=== PATIENT | male | born 1965 | race Two or more races ===

== ENCOUNTER 2021-02-17 15:28 | Emergency (ER) | payer MEDICAID, SELFPAY ==
[2021-02-17 15:35] VITALS: BP 136/70; PULSE 110; O2SAT 99
[2021-02-17 15:45] VITALS: BP 132/68; PULSE 85; RESP 16; TEMP 36.9; O2SAT 100; BMI 22.4
--- NOTE | 2021-02-17 16:10 | ED.ALCOHOL ---
HPI - Alcohol General Chief Complaint: ETOH/Substance Use Stated Complaint: etoh Time Seen by Provider: 02/17/21 16:08 Source: patient and EMS Mode of arrival: EMS Limitations: no limitations History of Present Illness HPI narrative: Patient tells me he worked till 1am. He had several beers and used heroin in his car after work. Fell asleep. Found by bystander and EMS called who transported him here. No SI/HI. Denies desire for detox today. No physical complaints. Related Data Allergies Allergy/AdvReac Type Severity Reaction Status Date / Time No Known Allergies Allergy Unverified 07/15/20 14:54 Review of Systems Review of Systems: Yes all other systems are reviewed and are negative Constitutional: Constitutional: Reports no additional constitutional complaints, Denies body ache(s), Denies chills, Denies fever(s), Denies headache(s) and Denies weakness Eyes: Eyes: Reports no additional eye complaints and Denies change in vision ENT: Reports system reviewed and no additional complaints, except as documented, Denies dizziness, Denies headache(s), Denies nasal congestion, Denies nasal discharge and Denies neck pain Cardiovascular: Cardiovascular: Reports no additional cardiovascular complaints, Denies chest pain, Denies leg edema and Denies dyspnea Respiratory: Respiratory: Reports no additional respiratory complaints, Denies cough and Denies dyspnea Gastrointestinal: Gastrointestinal: Reports no additional gastrointestinal complaints, Denies abdominal pain, Denies diarrhea, Denies nausea and Denies vomiting Genitourinary: Genitourinary: Denies urinary incontinence Musculoskeletal: Musculoskeletal: Reports no additional musculoskeletal complaints, Denies back pain, Denies arthralgias, Denies joint swelling, Denies neck pain, Denies numbness and Denies tingling Integumentary/Breasts: Skin/Breast: Reports system reviewed and no additional complaints, except as docu and Denies rash Neurologic: Reports system reviewed and no additional complaints, except as documented, Denies Abnormal speech present, Denies dizziness, Denies headache(s), Denies numbness, Denies tingling and Denies weakness PMFSH Past Medical History Attestation statement: The following information was validated with the patient. Source: old records reviewed and nursing notes reviewed Social History Social History Advance Directives: No Advance Directives Information Provided: Yes Physical Exam Vital Signs: Vital Signs: Last Vital Signs Temp 98.4 F 02/17/21 15:45 Pulse 85 02/17/21 15:45 Resp 16 02/17/21 15:45 BP 132/68 02/17/21 15:45 Pulse Ox 100 02/17/21 15:45 Body Mass Index 22.4 Const: General: cooperative, healthy appearing, comfortable and no acute distress Orientation/consciousness: patient oriented x3 Limitations: no limitations HENMT: Head: Yes normal to inspection Ears: hearing grossly normal bilaterally General nose exam: Normal external nose present Face and sinus: Yes normal facial exam Mouth: Normal oral and palatal mucosa present Throat: Yes posterior oropharynx normal Eyes: General: appearance normal, both eyes and all related structures Pupils: Equal, round and reactive pupils present Neck: Neck: Yes normal visual inspection Chest: Chest palpation & inspection: normal inspection of the chest Resp: Effort & Inspection: normal respiratory effort Auscultation: clear to auscultation bilaterally Cardio: Rate: regular rate Rhythm: regular rhythm Peripheral pulses: Peripheral pulses 2+ throughout GI: Inspection: Yes normal to inspection Palpation (GI): Soft to palpation and nontender Auscultation: normal bowel sounds Back/Spine/Pelvis: Thoracic/Lumbar Spine: thoracic and lumbar spine normal to inspection Skin: General skin exam: no rashes or lesions noted Neuro: General: patient oriented x3, no focal motor deficits and normal sensation to monofilament Cranial nerves: Yes Equal, round and reactive pupils present Cognition (Neuro): normal cognition Speech: No Abnormal speech present Gait exam (Neuro): Normal gait present Motor exam (neuro): 5/5 motor strength present throughout Extrem: General: Yes normal to inspection Course Course Course Narrative: 55 yo male here after being found sleeping in his car. Patient admits to using heroin and drinking beer at 2am after his shift then sleeping in his car. He has no physical complaints. No SI/HI. Does not want detox. Patient is A&Ox4. Walking with steady gait, talking on cellphone and tolerating PO. Clinically well. Patient tells me his brother will pick him up. Reviewed worrisome signs/symptoms with patient and when to return to ED. Comfortable with discharge home Discharge Plan Discharge Clinical Impression: Alcoholic intoxication, Substance use Patient Disposition: Home, Self-Care Instructions: Abuse of Alcohol (ED), Polysubstance Abuse (ED) Referrals: ED Physician,Generic [Physician] - 2 days Interventions: ED Discharge Assessment Last Done: 02/17/21 16:23 Discharge Date/Time: 02/17/21 16:24
== END 2021-02-17 16:24 | disposition home or self-care (01) ==
PROVIDERS: Emergency Provider Emergency Medicine
DX: F10.120 Alcohol abuse with intoxication, uncomplicated (principal); F11.10 Opioid abuse, uncomplicated
CPT/HCPCS: 99283

== ENCOUNTER 2024-09-04 10:40 | Emergency (ER) | payer MEDICAID, SELFPAY ==
--- NOTE | ~2024-09-04 | CT_ITS ---
EXAMINATION: CT ABDOMEN AND PELVIS WITH CONTRAST CLINICAL INFORMATION: Right upper quadrant pain. COMPARISON: None available. TECHNIQUE: Multidetector volumetric images were obtained from the superior aspect of the liver through the pubic symphysis following administration 85 mL of Omnipaque 350 intravenous contrast without reported immediate complications. Sagittal and coronal reformatted images were obtained on the technologist's workstation. Oral contrast: No This CT examination was performed using dose optimization techniques as appropriate, variously including the following: *Automated exposure control *Adjustment of mA and/or kV according to patient size (this includes techniques or standardized protocols for targeted exams where dose is matched to indication/reason for exam; i.e. extremities or head) *Use of iterative reconstruction technique DLP: 304 mGy-cm FINDINGS: LUNG BASES: No acute airspace disease or gross pulmonary nodules in the included lung bases. LIVER, GALLBLADDER, AND BILIARY TREE: Liver measures 18 cm with a nodular surface. 1.5 cm hypodensity in the right hepatic lobe. Intrahepatic biliary ductal dilatation, mild to moderate. Fluid-filled distended gallbladder. Trace of pericholecystic fluid. The dilated cystic duct measuring 1.7 cm. Dilated common bile duct measuring 2.5 cm with an abrupt cut off at the region of the head of the pancreas. PANCREAS: There is a 3.2 cm heterogeneous nodular enhancing lesion/mass in the head of the pancreas. There is a main pancreatic ductal dilatation measuring 1.2 cm. There is a 3.2 cm thin-walled cystic lesion in the caliber pancreas near the splenic hilum. There is a 2.5 cm cystic lesion in the uncinate process.. SPLEEN: Measures 11 cm without focal mass. ADRENAL GLANDS: No nodular lesions. KIDNEYS AND URETERS: There is a 1.7 cm exophytic septated enhancing lesion in the posterior lower pole/midportion junction of the right kidney. No hydronephrosis in either kidney. BLADDER: Fluid-filled. GASTROINTESTINAL TRACT: Edematous wall throughout the large intestine resulting in narrow lumen of the large intestine. Abundant stool. No intestinal obstruction pattern. Ascites, small to moderate volume. No pneumoperitoneum. No pneumatosis intestinalis. Appendix is normal. ABDOMINAL WALL: No gross hernia. LYMPH NODES: Lymphadenopathy, retroperitoneal, the largest measures 2 cm. VASCULAR: Mixed plaques in the abdominal aorta wall and iliac arteries without aneurysm or dissection. PELVIC VISCERA: Nonenlarged prostate gland with dystrophic ossifications. OSSEOUS STRUCTURES: Sclerotic marginated lytic lesion in the right femoral head. Degenerative changes in the sacroiliac joints. S-shaped curvature of the lumbar spine. Multilevel spondylosis. No acute fracture or listhesis in the axial skeleton. CT/CT abdomen pelvis w IV con IMPRESSION: Concerning for a 3.2 cm mass, pancreatic head resulting in biliary ductal dilatation and hydrops gallbladder. Hepatomegaly and likely hepatocellular disease. Ascites, moderate volume. Acute diffuse colitis. There are 2 pancreatic cystic lesions, uncinate process and tail. Bosniak type IV lesion, posterior lower pole midportion junction right kidney. Avascular necrosis, right femoral head. Fleischner guidelines were followed. Electronically signed by: Jamil Reed MD 09/04/2024 03:10 PM [facility]
[2024-09-04 10:52] VITALS: BP 107/51; PULSE 94; RESP 20; TEMP 36.4; O2SAT 98; BMI 20.4
[2024-09-04 11:16] LABS: Hematocrit 41.3 % (42.0-52.0); Hemoglobin 14.2 g/dl (14.0-18.0); Mean Corpuscular HGB Conc 34.4 g/dl (31.0-36.0); Mean Corpuscular Hemoglobin 29.1 pg (27.0-33.0); Mean Corpuscular Volume 84.6 fL (80.0-98.0); Mean Platelet Volume 12.1 fL (9.4-12.4); Platelet Count 262 X10*3/uL (160-400); Red Blood Count 4.88 X10*6/uL (4.60-5.80); Red Cell Distribution Width 19.2 % (11.0-16.0); WBC ABN SCTR FOR CBC 1; White Blood Count 10.3 X10*3/uL (4.8-10.8)
[2024-09-04 11:33] LABS: Band Neutrophils Percent 8 % (3-5); Eosinophils Absolute Manual 0.1 X10*3/uL (0.0-0.4); Eosinophils Percent Manual 1 % (0-4); Lymphocytes Absolute Manual 0.1 X10*3/uL (1.2-4.9); Lymphocytes Percent Manual 1 % (20-40); Metamyelocytes Absolute 0.1 X10*3/uL; Metamyelocytes Percent 1 %; Monocytes Absolute Manual 0.7 X10*3/uL (0.1-1.2); Monocytes Percent Manual 7 % (2-11); Neutrophils Absolute Manual 9.3 X10*3/uL (2.0-8.3); Neutrophils Percent Manual 82 % (45-73)
[2024-09-04 11:35] LABS: Platelet Estimate NORMAL (NORMAL); Platelet Morphology Comment NORMAL; RBC Morphology NOTED; Target Cells 1+ (5-14) /OIF
[2024-09-04 12:07] LABS: Lipase 250 U/L (8-78)
[2024-09-04 12:10] LABS: Alanine Aminotransferase 40 U/L (0-40); Albumin Level 2.9 g/dL (3.5-5.0); Alkaline Phosphatase 268 U/L (39-117); Anion Gap 16 (12-20); Aspartate Amino Transferase 110 U/L (5-37); Bilirubin Total 30.7 mg/dL (0.0-1.0); Blood Urea Nitrogen 21 mg/dL (9-16); Calcium 9.4 mg/dL (8.4-10.2); Carbon Dioxide 26 mmol/L (22-29); Chloride 97 mmol/L (96-108); Creatinine Clr Calc Pharmacy 47.3; Estimated Glomerular Filt Rate 60; Glucose Random 224 mg/dL (60-115); Potassium 4.8 mmol/L (3.3-5.1); Sodium 134 mmol/L (135-145); Total Protein 7.3 g/dL (6.5-8.0)
--- NOTE | 2024-09-04 13:30 | ED.ABDPAIN ---
HPI - Abdominal Pain General Chief Complaint: Abdominal Pain Stated Complaint: Abd pain Time Seen by Provider: 09/04/24 13:23 Source: patient and family () Mode of arrival: ambulatory Limitations: no limitations History of Present Illness ED Provider: MAAME ROWLAND PA-C HPI narrative: 59-year-old male with pmhx significant for alcohol abuse, polysubstance abuse (no longer on methadone), active IVDU (heroin and cocaine - last injected 3 hrs [employer]), hepatitis C, presents to the ED today for evaluation of diffuse abdominal discomfort/ bloating x2-3 months, worsening over the last few days. Reports associated decreased appetite, intermittent nausea/ vomiting, weight loss, dark urine, and yellowing to skin and eyes. Admits to 4/10 abdominal pain at present. Admits to constipation x2-3 days although was able to pass a normal BM this morning. Reports discontinuing all ETOH consumption 3 months ago at onset of symptoms. Admits to diagnosis of hep c and reports being treated for this 7 years ago. He does not have a PCP or any other out patient provider. Denies fever, chills, chest pain, SOB, LE pain/ swelling, diarrhea, dysuria, hematuria, flank pain. Related Data Allergies Allergy/AdvReac Type Severity Reaction Status Date / Time No Known Allergies Allergy Verified 09/04/24 10:55 Review of Systems Review of Systems Constitutional: No fever, chills, fatigue, night sweats, weight changes ENT/Mouth: No ear pain, hearing loss, nasal congestion, sinus pain, rhinorrhea, sore throat Eyes: No eye pain, swelling, redness, vision changes, discharge Cardio: No chest pain, palpitations, SKAGGS, orthopnea, peripheral edema Pulm: No SOB, cough, sputum, wheezing, dyspnea, hemoptysis GI: No hematemesis, diarrhea, constipation, hematochezia, melena, +abd bloating, +nausea, +vomiting : No irregular bleeding, dysuria, frequency, urgency, hesitancy, hematuria, flank pain, urinary flow changes, urinary incontinence or retention MSK: No back pain, neck pain, joint pain, myalgias Skin: No lesions, rashes, +yellow skin Neuro: No weakness, numbness, paresthesias, LOC, dizziness, headache Psych: No anxiety/panic, depression, SI/HI, AH/VH All other systems reviewed and are negative. [facility] Past Medical History Attestation statement: The following information was validated with the patient. Source: old records reviewed and nursing notes reviewed Social History Social History Smoked in Last 30 Days: No Use of substances other than those prescribed or required for medical reasons: Yes Substance Use Type: IV Drugs Substance Use Frequency: Chronic Longstanding Advance Directives: No Advance Directives Information Provided: Yes Physical Exam ED Vital Signs: Vital Signs - 24 hr 09/04/24 10:52 09/04/24 14:52 Temperature 97.6 F 98.2 F Pulse Rate 94 68 Respiratory Rate 20 18 Blood Pressure 107/51 L 135/76 Pulse Oximetry 98 99 Oxygen Delivery Method Room Air Room Air BMI result Body Mass Index 20.4 vital signs stable, afebrile General: ill appearing, thin, jaundiced Skin: Warm, dry, intact. No rashes or lesions. Head: Normocephalic, atraumatic. EENT: Hearing is intact b/l. Conjunctiva clear. scleral icterus. PERRLA. EOM intact. Moist mucous membranes.? Neck: Supple without LAD Cardiac: Chest wall symmetric. RRR Lungs: Normal respiratory effort without accessory muscle use. CTA bilaterally. No rales, rhonchi, or wheezes.? Abdomen: abdomen is distended, soft, nontender to light and deep palpation. he has normoactive bs x4. track fitzpatrick to upper extremities. Back: No midline spinous or paraspinal tenderness. No step off deformity. Ext: track fitzpatrick noted to UEs. Full ROM throughout. Neuro: AOx3. Normal speech. CN 2-12 grossly intact. Strength 5/5 intact throughout. No saddle anesthesia. Sensation intact to light touch. NV intact distally. Ambulating with steady gait. Psych: Appropriate mood and affect. Responds appropriately to questions. Course Course Course Narrative: 1351 -- CBC without leukocytosis. 8% bands. no anemia, h&h stable. chemistry with slight hyponatremia to 134. No ROSALINA. random glucose 224. Total bili elevated at 30.7, direct bili 22.7, AST 110, ALT 40, alk phos 268, albumin 2.9, lipase 250. Ethanol undetectable. Hepatitis panel pending. > declining any pain meds at present. IVF given. > CT abd pending. UA/UDS pending. 1548 -- CT abdomen showing hepatomegaly at 18 cm with nodular surface. There is a 1.5 cm hypodensity in the right hepatic lobe. Intrahepatic biliary ductal dilation mild to moderate. Fluid-filled distended gallbladder. Trace of pericholecystic fluid. Cystic duct dilated to 1.7 cm. Common bile duct dilated to 2.5 cm. There is a very 0.2 cm heterogeneous nodular enhancing lesion/mass not the head of the pancreas with main pancreatic ductal dilation to 1.2 cm. There was a 3.2 cm thin-walled cystic lesion in the caliber pancreas or the splenic hilum and do a 2.5 cm cystic lesion in the uncinate process. There is also edema throughout the large intestine resulting in narrow lumen of the large intestine and abundant stool without obstruction. Moderate amount of ascites. Normal appendix. > I spoke with our oncall Gi doctor, Dr. Hearn who states that the patient will require EUS and ERCP. unfortunaely, we do not have the ability to perform EUS at our facility. > Given patient does not have a PCP or any other outpatient specialist to follow up with, will reach out to [facility] for transfer for further care/ work up. I did discuss all work up results with patient and his . they express understanding and are agreeable to transfer to acute care center for further care. 1615 -- I spoke with GI fellow, Dr. Kwok, at [facility]. He accepts patient admission for further work up/ management. I also spoke with hospitalist ANY Orozco. Hospitalist Dr. Hubbard to be accepting physician on patient arrival. awaiting call from [facility] for bed placement. > patient and informed and are agreeable. Medical Decision Making Medical Decision Making MDM Narrative: 59-year-old male with pmhx significant for alcohol abuse, polysubstance abuse (no longer on methadone), IVDU (heroin and cocaine - last injected 3 hrs [employer]), hepatitis C, presents to the ED today for evaluation of diffuse abdominal discomfort/ bloating x2-3 months, worsening over the last few days. Vital signs are stable. He is afebrile. He is ill appearing. jaundiced with noted scleral icterus. AOX3. his abdomen is distended, soft, nontender to light and deep palpation. he has normoactive bs x4. track fitzpatrick to upper extremities. Differential diagnosis includes anemia, electrolyte abnormality, dehydration, acute cholecystitis, choledocolithiasis, cholangitis, cirrhosis, hepatitis, pancreatitis, pancreatic vs liver carcinoma. I do not have suspicion of spontaneous bacterial peritonitis. Plan for labs, UA, UDS, CT scan, re-evaluation. Differential Diagnosis Differential Diagnoses: The differential diagnosis associated with the presentation includes as above Admission/Observation Consideration of admission/observation: Escalation of care including admission/observation considered Considered [place] [facility] [place] will transfer to [facility] for EUS/ ERCP Consult Healthcare Provider Management of the patient was discussed with: Forestry Engineer [facility] [place] - Dr. Hearn [facility] GI - Dr. Kwok [facility] hostpitalist ANY Orozco Lab Data MDM Lab Attestation statement: I reviewed the patient's lab results. as above 09/04/24 11:10 09/04/24 11:10 Labs: Lab Results 09/04/24 Range/Units 11:10 WBC 10.3 (4.8-10.8) X10*3/uL RBC 4.88 (4.60-5.80) X10*6/uL Hgb 14.2 (14.0-18.0) g/dl Hct 41.3 L (42.0-52.0) % MCV 84.6 (80.0-98.0) fL MCH 29.1 (27.0-33.0) pg MCHC 34.4 (31.0-36.0) g/dl RDW 19.2 H (11.0-16.0) % Plt Count 262 (160-400) X10*3/uL MPV 12.1 (9.4-12.4) fL Immature Gran % (Auto) Cancelled Neut % (Auto) Cancelled Lymph % (Auto) Cancelled Gillespie % (Auto) Cancelled Eos % (Auto) Cancelled Baso % (Auto) Cancelled Lymph # (Auto) Cancelled Gillespie # (Auto) Cancelled Eos # (Auto) Cancelled Baso # (Auto) Cancelled Abs Immat Gran (auto) Cancelled Absolute Neuts (auto) Cancelled Absolute Nucleated RBC 0.000 (0.0-0.012) X10*3/uL Nucleated RBC % (auto) 0.0 (0.0-0.2) /100WBC Neutrophils % (Manual) 82 H (45-73) % Band Neutrophils % 8 H (3-5) % Lymphocytes % (Manual) 1 L (20-40) % Monocytes % (Manual) 7 (2-11) % Eosinophils % (Manual) 1 (0-4) % Metamyelocytes % 1 % Abs Neuts (Manual) 9.3 H (2.0-8.3) X10*3/uL Lymphocytes # (Manual) 0.1 L (1.2-4.9) X10*3/uL Monocytes # (Manual) 0.7 (0.1-1.2) X10*3/uL Eosinophils # (Manual) 0.1 (0.0-0.4) X10*3/uL Metamyelocytes # 0.1 X10*3/uL Platelet Estimate NORMAL (NORMAL) Plt Morphology Comment NORMAL RBC Morphology NOTED Target Cells 1+ (5-14) /OIF Sodium 134 L (135-145) mmol/L Potassium 4.8 (3.3-5.1) mmol/L Chloride 97 (96-108) mmol/L Carbon Dioxide 26 (22-29) mmol/L Anion Gap 16 (12-20) BUN 21 H (9-16) mg/dL Creatinine 1.24 (0.5-1.4) mg/dL Estim Creat Clear Calc 47.3 Estimated GFR 60 Random Glucose 224 H (60-115) mg/dL Calcium 9.4 (8.4-10.2) mg/dL Magnesium 2.1 (1.6-2.6) mg/dL Total Bilirubin 30.7 H (0.0-1.0) mg/dL Direct Bilirubin 22.7 H (0.0-0.5) mg/dL AST 110 H (5-37) U/L ALT 40 (0-40) U/L Alkaline Phosphatase 268 H (39-117) U/L Total Protein 7.3 (6.5-8.0) g/dL Albumin 2.9 L (3.5-5.0) g/dL Lipase 250 H (8-78) U/L Ethyl Alcohol < 10 mg/dL Independent Interpretation I performed an independent interpretation of an: CT Scan Interpretation: CT abd/ pelvis showing mass to pancreatic head Radiology Impression Discussion of test interpretation with radiology: I have reviewed the radiologist's reading. Radiologist Impression: EXAMINATION: CT ABDOMEN AND PELVIS WITH CONTRAST CLINICAL INFORMATION: Right upper quadrant pain. COMPARISON: None available. TECHNIQUE: Multidetector volumetric images were obtained from the superior aspect of the liver through the pubic symphysis following administration 85 mL of Omnipaque 350 intravenous contrast without reported immediate complications. Sagittal and coronal reformatted images were obtained on the technologist's workstation. Oral contrast: No This CT examination was performed using dose optimization techniques as appropriate, variously including the following: *Automated exposure control *Adjustment of mA and/or kV according to patient size (this includes techniques or standardized protocols for targeted exams where dose is matched to indication/reason for exam; i.e. extremities or head) *Use of iterative reconstruction technique DLP: 304 mGy-cm FINDINGS: LUNG BASES: No acute airspace disease or gross pulmonary nodules in the included lung bases. LIVER, GALLBLADDER, AND BILIARY TREE: Liver measures 18 cm with a nodular surface. 1.5 cm hypodensity in the right hepatic lobe. Intrahepatic biliary ductal dilatation, mild to moderate. Fluid-filled distended gallbladder. Trace of pericholecystic fluid. The dilated cystic duct measuring 1.7 cm. Dilated common bile duct measuring 2.5 cm with an abrupt cut off at the region of the head of the pancreas. PANCREAS: There is a 3.2 cm heterogeneous nodular enhancing lesion/mass in the head of the pancreas. There is a main pancreatic ductal dilatation measuring 1.2 cm. There is a 3.2 cm thin-walled cystic lesion in the caliber pancreas near the splenic hilum. There is a 2.5 cm cystic lesion in the uncinate process.. SPLEEN: Measures 11 cm without focal mass. ADRENAL GLANDS: No nodular lesions. KIDNEYS AND URETERS: There is a 1.7 cm exophytic septated enhancing lesion in the posterior lower pole/midportion junction of the right kidney. No hydronephrosis in either kidney. BLADDER: Fluid-filled. GASTROINTESTINAL TRACT: Edematous wall throughout the large intestine resulting in narrow lumen of the large intestine. Abundant stool. No intestinal obstruction pattern. Ascites, small to moderate volume. No pneumoperitoneum. No pneumatosis intestinalis. Appendix is normal. ABDOMINAL WALL: No gross hernia. LYMPH NODES: Lymphadenopathy, retroperitoneal, the largest measures 2 cm. VASCULAR: Mixed plaques in the abdominal aorta wall and iliac arteries without aneurysm or dissection. PELVIC VISCERA: Nonenlarged prostate gland with dystrophic ossifications. OSSEOUS STRUCTURES: Sclerotic marginated lytic lesion in the right femoral head. Degenerative changes in the sacroiliac joints. S-shaped curvature of the lumbar spine. Multilevel spondylosis. No acute fracture or listhesis in the axial skeleton. CT/CT abdomen pelvis w IV con IMPRESSION: Concerning for a 3.2 cm mass, pancreatic head resulting in biliary ductal dilatation and hydrops gallbladder. Hepatomegaly and likely hepatocellular disease. Ascites, moderate volume. Acute diffuse colitis. There are 2 pancreatic cystic lesions, uncinate process and tail. Bosniak type IV lesion, posterior lower pole midportion junction right kidney. Avascular necrosis, right femoral head. Fleischner guidelines were followed. Electronically signed by: Jamil Reed MD 09/04/2024 03:10 PM [facility] [place] Independent Historian Clinical information obtained from an independent historian. History obtained from or confirmed by: Spouse () External Record Review External record reviewed: Inpatient record Prescription Management I considered prescription management with: Pain Medication Chronic Conditions Patient?s care impacted by: Other (IVDU, hep c) Social Determinants Patient?s care significantly limited by Social Determinants of Health including: Other Social Determinant of Health Medications Administered Discontinued Medications Generic Name Dose Route Start Last Admin Trade Name Freq PRN Reason Stop Dose Admin Sodium Chloride 1,000 mls @ 999 mls/hr 09/04/24 14:15 09/04/24 14:46 Ns IV 09/04/24 15:15 999 mls/hr .[id number] UYEN Administration Iohexol 85 ml 09/04/24 14:27 09/04/24 14:27 Iohexol 350 Mg/Ml 100 Ml Infus..Btl IV 09/04/24 14:28 85 ml ONCE ONE Administration Critical Care Time Critical Care Time Critical Care Time: Yes Total Critical Care Time: 45 Attestation: Critical care time in the amount of 45 minutes has been provided to the patient in terms of direct patient care, frequent reevaluation, consultation with GI, [facility], review and interpretation of medical data and results, and management of potentially life-threatening conditions. This is all outside of any medical procedures. Discharge Plan Discharge Clinical Impression: Mass of head of pancreas, Cirrhosis, Colitis, Pancreas cyst, Jaundice Patient Disposition: [facility] Print Language: Uruguayan
[2024-09-04 14:04] LABS: Ethanol < 10 mg/dL; Magnesium 2.1 mg/dL (1.6-2.6)
[2024-09-04 14:27] LABS: Bilirubin Direct 22.7 mg/dL (0.0-0.5)
[2024-09-04] MEDS: iohexoL 350 MG/ML 100 ML INFUS..BTL 85 ML IV (14:27)
[2024-09-04] MEDS: 0.9 % Sodium Chloride 1,000 ML 999 ML IV (14:46)
[2024-09-04 14:52] VITALS: BP 135/76; PULSE 68; RESP 18; TEMP 36.8; O2SAT 99
--- NOTE | 2024-09-04 14:58 | PC.NURSE ---
pt comes to ED for evaluation of lower central abd pain. skin and sclera are yellowed, ts abdomen is distended. he admit to IVDU, and states that he is no longer drinking. 20g IV left AC, fluids infusing per mar.
[2024-09-04 17:26] VITALS: BP 136/72; PULSE 72; RESP 18; TEMP 36.6; O2SAT 99
[2024-09-04 17:39] LABS: Appearance Urine Clear; Color Urine Dark Yellow; Glucose Urine UA 250 mg/dL (Negative); Leukocyte Esterase Urine Small (1+) (Negative); Nitrite Urine Negative (Negative); PH 6.5 (5.0-9.0); Specific Gravity - Urine >= 1.030 (1.005-1.025); UMIC TRIGGER UACC YES; Urine Blood Negative (Negative); Urine Ketones Negative (Negative); Urine Protein 30 (1+) mg/dL (Neg-Trace)
[2024-09-04 17:44] LABS: Amphetamine Screen Urine Not Detected (Not Detect); Barbiturates, Urine Not Detected (Not Detect); Benzodiazepines Screen Urine Not Detected (Not Detect); Buprenorphine Scr Not Detected (Not Detect); Cannabinoid Screen Urine Not Detected (Not Detect); Cocaine Screen Urine POSITIVE (Not Detect); Fentanyl, urine POSITIVE (Not Detect); Methadone Screen, Urine Positive (Not Detect); Opiate Screen Urine POSITIVE (Not Detect); Oxycodone Screen Urine Not Detected (Not Detect); Phencyclidine Screen Urine Not Detected (Not Detect)
[2024-09-04 18:15] LABS: Bacteria Urine None Seen (None Seen); Granular Casts Urine Present; RBC Urine 0-2 /HPF (0-2); UACC Culture Trigger YES; WBC Urine 0-5 /HPF (0-5)
[2024-09-04 19:04] VITALS: BP 113/69; PULSE 68; RESP 16; TEMP 36.6; O2SAT 98
[2024-09-04 20:52] VITALS: BP 113/69; PULSE 68; RESP 16; TEMP 36.6; O2SAT 98
[2024-09-05 04:02] LABS: HBsAGNum1 0.76 S/CO (0.00-0.99); Hepatitis A Antibody IgM 0.54 Index (0-0.79); Hepatitis B Surface Antigen Negative (Negative); ~HepC Num1 5.78 S/CO (0.00-0.79); ~Hepatitis A Antibody IgM Nonreactive (Nonreactive); ~Hepatitis B Surface Antibody NONREACTIVE (Nonreactive); ~Hepatitis C Antibody Reactive (Nonreactive)
[2024-09-05 04:46] LABS: HBc Num3 4.08 S/CO; Hepatitis B Core Antibody Reactive (Nonreactive)
[2024-09-07 08:33] LABS: Hepatitis B Core Antibody IgM NON-REACTIVE (NON-REACTIVE)
== END 2024-09-04 20:53 | disposition short-term general hospital (02) ==
PROVIDERS: Physician Assistant Medical; Emergency Provider Emergency Medicine
DX: K52.9 Noninfective gastroenteritis and colitis, unspecified (principal); K86.2 Cyst of pancreas; K74.60 Unspecified cirrhosis of liver; R10.2 Pelvic and perineal pain; F11.10 Opioid abuse, uncomplicated; F14.10 Cocaine abuse, uncomplicated; R11.2 Nausea with vomiting, unspecified; Z51.81 Encounter for therapeutic drug level monitoring; Z79.899 Other long term (current) drug therapy
CPT/HCPCS: 36415; 74177; 80053; 80307; 81001; 82248; 83690; 83735; 85007; 85027; 86704; 86705; 86706; 86709; 86803; 87086; 87340; 96360; 96361; 99285; Q9967

== ENCOUNTER → 2024-09-04 13:38 | Outpatient (BNV) | payer MEDICAID, SELFPAY | PROVIDERS: Emergency Provider Emergency Medicine; Visit Provider Radiology Diagnostic Radiology | DX: R10.11 Right upper quadrant pain (principal) | CPT/HCPCS: 74177 ==